=== PATIENT | female | born 1995 | race Two or more races ===

== ENCOUNTER 2017-07-13 20:28 | Emergency (ER) | payer OTHER ==
[2017-07-13 22:01] LABS: APPEARANCE,URINE CLEAR; BILIRUBIN,URINE NEGATIVE (NEGATIVE); GLUCOSE, URINE NEGATIVE (NEGATIVE); KETONES,URINE NEGATIVE (NEGATIVE); LEUKOCYTE ESTERASE,URINE NEGATIVE (NEGATIVE); NITRITE,URINE POSITIVE (NEGATIVE); PROTEIN,URINE NEGATIVE (NEGATIVE); URINE SPECIFIC GRAVITY 1.011
[2017-07-13] MEDS ORDERED: CEPHALEXIN 500 MG CAPSULE PO ONE (22:16)
--- NOTE | 2017-07-13 22:17 | ER Document Report ---
ED GI/ - General Chief Complaint: Urinary Problem Stated Complaint: LOWER BACK PAIN Time Seen by Provider: 07/13/17 22:06 Mode of Arrival: Ambulatory Information source: Patient - HPI Patient complains to provider of: Dysuria Onset: Other - 5 days Timing/Duration: Persistent Quality of pain: Achy, Cramping Severity at maximum: Mild Severity in ED: Mild Associated symptoms: Dysuria, Urinary frequency Exacerbated by: Denies Relieved by: Denies Notes: 07/13/17 23:50 22-year-old female presents to the emergency room complaining of 5 day history of cloudy urine, with dysuria and urinary frequency, and 2 days ago developed some low back pain as well, denies any fever, no nausea or vomiting, no vaginal discharge, denies being - Related Data Allergies/Adverse Reactions: oxycodone [From OxyContin] Adverse Reaction (Verified 07/13/17 20:46) rash Past Medical History - General Information source: Patient - Social History Smoking Status: Never Smoker Family History: Reviewed & Not Pertinent Renal/ Medical History: Denies: Hx Peritoneal Dialysis Review of Systems - Review of Systems Constitutional: No symptoms reported EENT: No symptoms reported Cardiovascular: No symptoms reported Respiratory: No symptoms reported Gastrointestinal: No symptoms reported Genitourinary: See HPI Female Genitourinary: No symptoms reported Musculoskeletal: No symptoms reported Skin: No symptoms reported Hematologic/Lymphatic: No symptoms reported Neurological/Psychological: No symptoms reported -: Yes All other systems reviewed and negative Physical Exam - Vital signs Vitals: Temp Pulse Resp BP Pulse Ox 98.5 F 79 18 135/96 H 98 07/13/17 20:47 07/13/17 20:47 07/13/17 20:47 07/13/17 20:47 07/13/17 20:47 Interpretation: Normal - General General appearance: Appears well, Alert - HEENT Head: Normocephalic, Atraumatic Eyes: Normal Pupils: PERRL - Respiratory Respiratory status: No respiratory distress Chest status: Nontender Breath sounds: Normal Chest palpation: Normal - Cardiovascular Rhythm: Regular Heart sounds: Normal auscultation Murmur: No - Abdominal Inspection: Normal Distension: No distension Bowel sounds: Normal Tenderness: Nontender Organomegaly: No organomegaly - Back Back: Normal, Nontender - Extremities General upper extremity: Normal inspection, Nontender, Normal color, Normal ROM , Normal temperature General lower extremity: Normal inspection, Nontender, Normal color, Normal ROM , Normal temperature, Normal weight bearing. No: Krystle's sign - Neurological Neuro grossly intact: Yes Cognition: Normal Orientation: AAOx4 [place] Coma Scale Eye Opening: Spontaneous [place] Coma Scale Verbal: Oriented [place] Coma Scale Motor: Obeys Commands [place] Coma Scale Total: 15 Speech: Normal Motor strength normal: LUE, RUE, LLE, RLE Sensory: Normal - Psychological Associated symptoms: Normal affect, Normal mood - Skin Skin Temperature: Warm Skin Moisture: Dry Skin Color: Normal Course - Re-evaluation Re-evalutation: 07/13/17 23:51 Patient symptoms are consistent with a urinary tract infection, urinalysis confirms this, patient was started on antibiotics and advised to follow-up with primary care provider in 2-3 days or return if symptoms worsen, patient acknowledges understanding and agreement with this plan - Vital Signs Vital signs: Temp Pulse Resp BP Pulse Ox 98.3 F 70 16 128/87 H 100 07/13/17 22:20 07/13/17 22:20 07/13/17 22:20 07/13/17 22:20 07/13/17 22:20 - Laboratory Laboratory results interpreted by me: 07/13/17 21:40 Urine Nitrite POSITIVE H Urine Urobilinogen 4.0 H Discharge - Discharge Clinical Impression: Urinary tract infection Qualifiers: Urinary tract infection type: site unspecified Hematuria presence: without hematuria Qualified Code(s): N39.0 - Urinary tract infection, site not specified Condition: Stable Disposition: HOME, SELF-CARE Instructions: Cephalexin ([facility]), Urinary Tract Infection ([facility]) Additional Instructions: Follow up with your primary care provider in one to 2 days. Return to the emergency room immediately if symptoms worsen or any additional concerns. Prescriptions: Cephalexin Monohydrate [Keflex 500 mg Capsule] 500 mg PO BID #20 capsule
[2017-07-13 22:42] VITALS: BP 128/87
== END 2017-07-13 22:20 | disposition home or self-care (01) ==
LOC: ER 20:28
DX: N39.0 Urinary tract infection, site not specified (principal); M54.5 Low back pain; Z88.6 Allergy status to analgesic agent
CPT/HCPCS: 81001; 81025; 99283

== ENCOUNTER 2017-07-29 22:16 | Emergency (ER) | payer OTHER ==
[2017-07-29 22:42] VITALS: BP 131/88
--- NOTE | 2017-07-30 00:53 | ER Document Report ---
ED General - General Chief Complaint: Abdominal Pain Stated Complaint: ABDOMINAL,BACK PAIN Time Seen by Provider: 07/30/17 00:42 Notes: Patient is a 22-year-old female presents with complaint of abdominal pain and lower back pain. She says pain started suddenly today. Pain is mostly in the abdomen itself. She says she has just a little bit of lower back pain associated with it. No fevers. No vomiting. No diarrhea. No abnormal vaginal discharge or bleeding. She just ended her menstrual period 2 days ago. She denies ever having pain like this before except for when she had her C- section. was over a year ago. No other complaints at this time. TRAVEL OUTSIDE OF THE [place] IN LAST 30 DAYS: No - Related Data Allergies/Adverse Reactions: oxycodone [From OxyContin] Adverse Reaction (Verified 07/13/17 20:46) rash Past Medical History - Social History Smoking Status: Never Smoker Frequency of alcohol use: None Drug Abuse: None Family History: Reviewed & Not Pertinent Patient has suicidal ideation: No Patient has homicidal ideation: No Renal/ Medical History: Denies: Hx Peritoneal Dialysis Review of Systems - Review of Systems Notes: My Normal Review Basic REVIEW OF SYSTEMS: CONSTITUTIONAL : Denies fever, chills, or sweats. Denies recent illness. EENT: Denies eye, ear, throat, or mouth pain or symptoms. Denies nasal or sinus congestion. CARDIOVASCULAR: Denies chest pain. RESPIRATORY: Denies cough, cold, or chest congestion. Denies shortness of breath, difficulty breathing, or wheezing. GASTROINTESTINAL: Diffuse abdominal pain. Denies nausea, vomiting, or diarrhea. Denies constipation. Last BM: GENITOURINARY: Denies difficulty urinating, painful urination, burning, frequency, or blood in urine. FEMALE GENITOURINARY: Denies vaginal bleeding, abnormal or irregular periods. LMP: 2 days ago MUSCULOSKELETAL: Some back pain. SKIN: Denies rash or skin lesions. NEUROLOGICAL: Denies altered mental status or loss of consciousness. Denies headache. Denies weakness or paralysis or loss of use of either side. Denies problems with gait or speech. Denies sensory or motor loss. ALL OTHER SYSTEMS REVIEWED AND NEGATIVE. Physical Exam - Vital signs Vitals: Temp Pulse Resp BP Pulse Ox 98.9 F 88 18 131/88 H 98 07/29/17 22:38 07/29/17 22:38 07/29/17 22:38 07/29/17 22:38 07/29/17 22:38 - Notes Notes: General Appearance: Well nourished, alert, cooperative, no acute distress, mild obvious discomfort. No apparent. well-appearing Head: no swelling or tenderness to the head Eyes: PERRL, EOMI, Conjuctiva clear Mouth: No decreasd moisturehroat: No tonsillar inflammation, No airway obstruction, No lymphadenopathy Lungs: No wheezing, No rales, No rhonci, No accessory muscle use, good air exchange bilaterally. Heart: Normal rate, Regular rythm, No murmur, no rub Abdomen: Normal BS, soft, No rigidity, she has moderate pain to palpation of suprapubic region and also in the left upper quadrant. No pain in the right upper quadrant. Very mild pain in the right lower and left lower quadrants., No guarding, no rebound, Extremities: strength 5/5 in all extremities, good pulses in all extremities, no swelling or tenderness in the extremities, no edema. Skin: warm, dry, appropriate color, no rash Neuro: speech clear, oriented x 3, normal affect, responds appropriately to questions. Course - Re-evaluation Re-evalutation: 07/30/17 04:40 Patient's ultrasound shows evidence of a ruptured left ovarian cyst. This would make sense clinically with her presentation and exam findings pain mainly in the left side. On reevaluation of her abdomen she has no pain in the right lower quadrant of abdomen and has pain only in her left lower quadrant now when I palpate. She is feeling improved. Toradol did help her pain. I encouraged her return to ER if she has fevers, worsening pain, or feels unwell. Patient agrees with plan will be discharged home. Dictation of this chart was performed using voice recognition software; therefore, there may be some unintended grammatical errors. - Vital Signs Vital signs: Temp Pulse Resp BP Pulse Ox 98.9 F 88 18 131/88 H 98 07/29/17 22:38 07/29/17 22:38 07/29/17 22:38 07/29/17 22:38 07/29/17 22:38 - Laboratory Result Diagrams: 07/30/17 01:10 07/30/17 01:10 Laboratory results interpreted by me: 07/30/17 01:10 WBC 13.1 H Discharge - Discharge Clinical Impression: Ruptured ovarian cyst Abdominal pain Qualifiers: Abdominal location: left lower quadrant Qualified Code(s): R10.32 - Left lower quadrant pain Condition: Good Disposition: HOME, SELF-CARE Additional Instructions: Your ultrasound shows evidence of a ruptured left ovarian cyst. This would explain the pain that you had tonight. Please return to the ER immediately if you have worsening pain, fevers, vomiting, or feel unwell. Prescriptions: Ketorolac Tromethamine [Toradol 10 mg Tablet] 10 mg PO Q6HP PRN #10 tablet PRN Reason: Forms: Return to Work
[2017-07-30 01:18] LABS: ABSOLUTE BASOPHILS # (AUTO) 0.1 10^3/uL (0.0-0.2); ABSOLUTE EOSINOPHILS # (AUTO) 0.2 10^3/uL (0.0-0.6); ABSOLUTE LYMPHOCYTES (AUTO) 3.9 10^3/uL (0.5-4.7); ABSOLUTE MONOCYTES (AUTO) 0.9 10^3/uL (0.1-1.4); ABSOLUTE NEUT (AUTO) 8.1 10^3/uL (1.7-8.2); BASOPHILS % (AUTO) 0.4 % (0-2); EOSINOPHILS % (AUTO) 1.2 % (0-6); HEMATOCRIT 37.6 % (36.0-47.0); HGB HCT DIFFERENCE 1.4; LYMPHOCYTES % (AUTO) 29.5 % (13-45); MEAN CORPUSCULAR HEMOGLOBIN 28.9 pg (27.0-33.4); MEAN CORPUSCULAR HGB CONC 34.7 g/dL (32.0-36.0); MEAN CORPUSCULAR VOLUME 83 fl (80-97); MONOCYTES % (AUTO) 6.7 % (3-13); RED CELL DISTRIBUTION WIDTH 12.8 % (11.5-14.0); SEGMENTED NEUTROPHILS % (AUTO) 62.2 % (42-78); WHITE BLOOD COUNT 13.1 10^3/uL (4.0-10.5)
[2017-07-30 01:23] LABS: APPEARANCE,URINE CLEAR; BILIRUBIN,URINE NEGATIVE (NEGATIVE); GLUCOSE, URINE NEGATIVE (NEGATIVE); KETONES,URINE NEGATIVE (NEGATIVE); LEUKOCYTE ESTERASE,URINE NEGATIVE (NEGATIVE); NITRITE,URINE NEGATIVE (NEGATIVE); PROTEIN,URINE NEGATIVE (NEGATIVE); UROBILINOGEN,URINE NEGATIVE mg/dL (<2.0)
[2017-07-30] MEDS ORDERED: KETOROLAC TROMETHAMINE INJ/PF 30 MG/1 ML SDV IV ONE (01:36)
[2017-07-30 01:47] LABS: ALANINE AMINOTRANSFERASE 27 U/L (9-52); ALBUMIN 4.2 g/dL (3.5-5.0); ALKALINE PHOSPHATASE 94 U/L (38-126); ANION GAP 11 (5-19); ASPARTATE AMINO TRANSFERASE 15 U/L (14-36); BILIRUBIN,DIRECT 0.2 mg/dL (0.0-0.4); BILIRUBIN,TOTAL 0.3 mg/dL (0.2-1.3); BLOOD UREA NITROGEN 11 mg/dL (7-20); CALCIUM 10.2 mg/dL (8.4-10.2); CARBON DIOXIDE 29 mmol/L (22-30); CHLORIDE 103 mmol/L (98-107); CREATININE RESULT 0.54 mg/dL (0.52-1.25); GLUCOSE 100 mg/dL (75-110); LIPASE 168.4 U/L (23-300); POTASSIUM 4.1 mmol/L (3.6-5.0); SODIUM 143.1 mmol/L (137-145); TOTAL PROTEIN 6.9 g/dL (6.3-8.2)
[2017-07-30] MEDS ORDERED: KETOROLAC TROMETHAMINE INJ/PF 30 MG/1 ML SDV IM ONE (02:06)
--- NOTE | 2017-07-30 04:30 | RADIOLOGY REPORT (SQ) ---
EXAM DESCRIPTION: U/S NON OB PEL TV W/DOPPLER CLINICAL HISTORY: 22 years, Female, lower abdominal pain radiating to back COMPARISON: None. TECHNIQUE: A scale, color Doppler and spectral Doppler waveform analysis techniques were all utilized to perform this examination. LIMITATIONS: None. FINDINGS: The uterus appears normal and measures 7 cm x 4.1 cm in greatest sagittal dimension and 5.4 cm in greatest transverse dimension. No myometrial mass lesions. Greatest total endometrial thickness equals 10 mm. Query late phase of menstrual cycle? The right ovary appears normal and measures 2.7 cm x 2.0 cm x 2.3 cm in greatest dimension. There is strong arterial and venous blood flow to the right ovary using color Doppler and spectral Doppler waveform analysis techniques respectively. No evidence of right ovarian torsion. The left ovary appears normal and measures 2.8 cm x 1.9 cm x 2.0 cm in greatest dimension. There is strong arterial and venous blood flow to left ovary using color Doppler and spectral Doppler waveform analysis techniques respectively. No evidence of left ovarian torsion. Small sliver-like referral fluid collection the left ovary may represent residual from recently ruptured left ovarian cyst. Small amount of free pelvic fluid. No adnexal mass lesions. The urinary bladder is empty for this transvaginal ultrasound examination and cannot be evaluated. IMPRESSION: 1. Suspect recently ruptured left ovarian cyst. Both ovaries appear otherwise normal described above. No evidence of ovarian torsion. 2. Greatest total sagittal thickness of the endometrium equals 10 mm. Query late phase the menstrual cycle? No evidence of intrauterine . Ectopic cannot be excluded. 3. Small amount of free pelvic fluid. 2010 [employer]- All Rights Reserved
== END 2017-07-30 05:02 | disposition home or self-care (01) ==
LOC: ER 22:16
DX: N83.202 Unspecified ovarian cyst, left side (principal); R10.32 Left lower quadrant pain; M54.5 Low back pain; Z88.6 Allergy status to analgesic agent
CPT/HCPCS: 99284; 36415; 83690; 85025; 81025; 80053; 81001; 76830; 93976; J1885